=== PATIENT | female | born 2000 | race Caucasian/White ===

== ENCOUNTER 2022-12-07 02:19 | Emergency (ER) | payer OTHER, SELFPAY ==
[2022-12-07 02:30] VITALS: BP 140/92; PULSE 119; RESP 16; TEMP 36.7; O2SAT 98; BMI 35.9
[2022-12-07 02:34] VITALS: BP 148/100; PULSE 130; O2SAT 98
--- NOTE | 2022-12-07 02:50 | ED_ITS ---
HPI - Anxiety General Chief Complaint: Anxiety Stated Complaint: Anxiety Time Seen by Provider: 12/07/22 02:49 Source: patient Mode of arrival: ambulatory Limitations: no limitations History of Present Illness HPI narrative: Patient history of anxiety not feeling herself for last few days took some CBD gummy tonight which she has taken them before feels anxious . Denies any depression or SI not on any medication at home Related Data Previous Rx's Medication Instructions Recorded lorazepam 1 mg tablet (Ativan) 1 mg PO BEDTIME PRN anxiety #14 12/07/22 tabs Allergies Allergy/AdvReac Type Severity Reaction Status Date / Time No Known Allergies Allergy Verified 12/07/22 02:56 Review of Systems Review of Systems: Yes all other systems are reviewed and are negative [facility] Social History Social History Use of substances other than those prescribed or required for medical reasons: Yes Substance Use Type: Marijuana Advance Directives: No Patient : No Physical Exam Vital Signs: Vital Signs: Last Vital Signs Temp 98.7 F 12/07/22 03:47 Pulse 120 H 12/07/22 03:47 Resp 32 H 12/07/22 03:47 BP 128/85 12/07/22 03:47 Pulse Ox 97 12/07/22 03:47 O2 Del Method 12/07/22 03:47 BMI result Body Mass Index 35.9 Appearance: Alert. Oriented X3. No acute distress. Anxious Eyes: PERRLA, No Nystagmus ENT: Pharynx normal. Oral Mucosa moist Neck: Normal inspection. Neck supple. CVS: Normal heart rate and rhythm. Pulses normal. Respiratory: No respiratory distress. Equal air entry bilateral, no wheezing/rales/rhonchi Abdomen: Soft and nontender. Bowel sounds are present, no mass palpable, Skin: Skin warm and dry. Normal skin color. Normal skin turgor. Extremities: No lower extremity edema. No calf tenderness Neuro: Oriented X 3. No motor deficit. Medications Administered Discontinued Medications Generic Name Dose Route Start Last Admin Trade Name Freq PRN Reason Stop Dose Admin Lorazepam 1 mg 12/07/22 02:56 12/07/22 03:04 Lorazepam 1 Mg Tablet PO 12/07/22 02:57 1 mg ONCE ONE Administration Medical Decision Making Medical Decision Making MDM Narrative: Patient with anxiety/panic disorder felt better after Ativan will discharge patient home advised to follow PCP Independent Interpretation I performed an independent interpretation of an: EKG Interpretation: Sinus tachycardia heart rate 112 beats per minute normal interval normal axis no acute ST depression no acute ischemia Discharge Plan Discharge Clinical Impression: Acute anxiety Patient Disposition: Home, Self-Care Instructions: Anxiety (ED) Additional Instructions: Rest at home Medicine for acute anxiety as prescribed and follow-up with PCP Prescriptions: New lorazepam [Ativan] 1 mg tablet 1 mg PO BEDTIME PRN (Reason: anxiety) Qty: 14 0RF Interventions: ED Discharge Assessment Last Done: 12/07/22 04:14 Discharge Date/Time: 12/07/22 04:16
--- OUTSIDE RECORDS SUMMARY | 2022-12-07 02:54 | XMS_ITS | Continuity of Care Document ---
:2000 Author Organization [facility] Adult Address [address] [place] [address]- Care Team Providers Name Role Phone Marcie Sylvester MD Primary Care Physician Encounter [facility] Date(s): 11/07/19 - 11/17/19 [facility] [address] [place] [id number]- [facility] Attending Physician: Nida Davison Admitting Physician: Nida Davison Referring Physician: Nida Davison Allergies, Adverse Reactions, Alerts Substance Reaction Severity Status sulfa drugs Active Bactrim Active Problem List Condition Effective Dates Status Health Status Informant Abnormal weight gain(Confirmed) Active Abnormal menstrual periods(Confirmed) Active Social History Social History Type Response Smoking Status Current every day smoker entered on: 07/07/15 Sex
--- OUTSIDE RECORDS SUMMARY | 2022-12-07 02:54 | XMS_ITS | Continuity of Care Document ---
:2000 Author Organization [facility] Adult Address [address] [place] [address]- Care Team Providers Name Role Phone Nga DELGADO, Marcie Primary Care Physician Encounter [facility] Date(s): 09/29/19 - 12/07/19 [facility] [address] [place] [address]- [facility] Attending Physician: Mark DELGADO, Kiana Allergies, Adverse Reactions, Alerts Substance Reaction Severity Status sulfa drugs Active Bactrim Active Problem List Condition Effective Dates Status Health Status Informant Abnormal weight gain(Confirmed) Active Abnormal menstrual periods(Confirmed) Active Social History Social History Type Response Smoking Status Current every day smoker entered on: 07/07/15 Sex
--- NOTE | 2022-12-07 02:58 | ECG_ITS ---
Test Reason : ANXIETY Blood Pressure : / mmHG Vent. Rate : 112 BPM Atrial Rate : 112 BPM P-R Int : 164 ms QRS Dur : 082 ms QT Int : 334 ms P-R-T Axes : 028 017 012 degrees QTc Int : 455 ms Sinus tachycardia Otherwise normal ECG No previous ECGs available Referred By: Eyal Mackenzie Electronically Signed By:GRAY FORD MD
[2022-12-07] MEDS: LORazepam 1 MG TABLET PO (03:04)
--- NOTE | 2022-12-07 03:46 | PC.NURSE ---
pt a&o, no sob or chest pain, pt resting in bed at this time. Will continue monitor.
[2022-12-07 03:47] VITALS: BP 128/85; PULSE 120; RESP 32; TEMP 37.1; O2SAT 97
--- NOTE | 2022-12-07 03:49 | PC.NURSE ---
pt reports feeling much better at this time.
--- NOTE | 2022-12-07 04:14 | PC.NURSE ---
Reviewed discharge instructions with pt. pt verbalized understanding.
== END 2022-12-07 04:16 | disposition home or self-care (01) ==
PROVIDERS: Emergency Provider Internal Medicine
DX: F41.9 Anxiety disorder, unspecified (principal); R00.0 Tachycardia, unspecified; F12.90 Cannabis use, unspecified, uncomplicated; Z79.899 Other long term (current) drug therapy
CPT/HCPCS: 93005; 99283; 99284